=== PATIENT | female | born 1960 | race African-American/Black ===

== ENCOUNTER → 2020-10-15 | Outpatient (CLI) | payer OTHER | LOC: M.LAB 08:38 | PROVIDERS: ATTEND Orthopaedic Surgery | DX: Z01.812 Encounter for preprocedural laboratory examination (principal); Z20.822 Contact with and (suspected) exposure to COVID-19 ==

== ENCOUNTER → 2020-11-19 | Outpatient (CLI) | payer OTHER | LOC: M.LAB 08:31 | PROVIDERS: ATTEND Orthopaedic Surgery | DX: Z01.812 Encounter for preprocedural laboratory examination (principal); E87.6 Hypokalemia; Z20.822 Contact with and (suspected) exposure to COVID-19 ==